=== PATIENT | male | born 1960 | race African-American/Black ===

== ENCOUNTER 2016-08-10 05:39 | Day surgery (SDC) | payer MEDICAID, OTHER ==
[2016-08-10] VITALS (14 sets, daily range): BP systolic 102–155; BP diastolic 56–90; PULSE 44–58; RESP 13–21; Ht 177.8 cm; Wt 84.0 kg
[~2016-08-10] VITALS: Ht 177.8 cm; Wt 84.0 kg
[2016-08-10] MEDS ORDERED: morphine SULFATE/PF (10 MG/10 ML) INJ ONE (06:46)
[2016-08-10] MEDS ORDERED: SODIUM CL BACTERIOSTATIC 30 ML INJ ONE (06:46)
[2016-08-10] MEDS ORDERED: EPINEPHrine 1 MG/ML 30 ML INJ ONE (06:47)
[2016-08-10] MEDS ORDERED: SUCCINYLCHOLINE CHLORIDE 100 MG/5 ML SYG IV ONE (06:57)
[2016-08-10] MEDS ORDERED: ONDANSETRON 4 MG INJ ONE (06:58)
[2016-08-10] MEDS ORDERED: FENTAnyl 50 MCG/ML VIAL ONE (06:58)
[2016-08-10] MEDS ORDERED: ROCURONIUM 50 MG INJ ONE (06:58)
[2016-08-10] MEDS ORDERED: PROPOFOL 20 ML ONE (06:58)
[2016-08-10] MEDS ORDERED: CEFAZOLIN 1 GM INJ ONE (06:58)
--- NOTE | 2016-08-10 07:03 | PREOPHP ---
DATE OF ADMISSION: 08/10/2016 HISTORY OF PRESENT ILLNESS: This 55-year-old patient is going to be admitted for diagnostic arthros copy; partial medial and partial lateral meniscectomy, possible repair; application of Gibbs dressin g of right knee. This patient has been experiencing right knee pain for quite a while. Conservativ e treatment resulted in limited benefit to the patient, and the patient has requested surgical inter vention. PAST MEDICAL HISTORY: Unremarkable. SOCIAL HISTORY: Nonsmoker, nondrinker. FAMILY HISTORY: Positive for diabetes, Alzheimer's. SURGICAL HISTORY: Breast biopsy. HISTORY OF DRUG ALLERGIES: NONE. MEDICATIONS: 1. Sulindac. 2. Folic acid. 3. ____ surgery has been [place] 5/325 postop and Bactrim DS for 5 days. PHYSICAL EXAMINATION: SKIN: Within normal limits. EARS, NOSE, THROAT: PERRLA. HEAD AND NECK: Normocephalic. Trachea midline. Bilateral symmetrical carotid pulses. No mass, no bruit, no lymphadenopathy. CARDIOVASCULAR: Normal sinus rhythm. S1, S2 normal. No murmur. No JVD. No peripheral edema. LUNGS: Clear. ABDOMEN: Protuberant. No organomegaly. No mass. Bowel sounds present. GENITOURINARY AND RECTAL: Not done, not pertinent to this admission. MUSCULOSKELETAL: Height of 5 feet 10 inches, weighing 194 pounds. Cervical spine range of motion w as about 80%. There is minimal tenderness in trapezius region ____. UPPER EXTREMITIES: Shoulders, elbows, wrist and hands symmetrical and normal including neurovascula r examination. LOWER EXTREMITIES: Symmetrical and normal except for right knee. Range of motion is 0 to 10 degree s of flexion, lack of 10 degrees of extension. There is tenderness over the posterolateral corner o f the knee. There is no instability. There is positive Apley compression test. RADIOLOGIC EVALUATION: MRI of right knee indicates torn lateral meniscus, torn medial meniscus, cho ndromalacia of patella, joint effusion. DIAGNOSES: Right knee torn medial and lateral meniscus, plica band, possible synovitis, ____. Treatment plan, alternatives, risks were discussed. The patient understands possibility of complica tion from surgery such as infection, bleeding, nerve damage, vascular damage, possibility of deep ve nous thrombosis, pulmonary embolism, hypersensitivity from medication, ____ that ideal result may no t be obtained depending on actual finding and known or unknown factor or factors. A formal H and P is supposed to be done by PCP. The patient understands preop, postop protocol ____ repair. The patient will be on crutches, nonwei ghtbearing for 6 weeks. Dictated By: KAYLA CHATTERJEE/RYLIE Conf#: [id number] DID#: [id number]
[2016-08-10] MEDS ORDERED: ZINC50TA31 PO (07:04)
[2016-08-10] MEDS ORDERED: VIT D3 PO (07:04)
[2016-08-10] MEDS ORDERED: AMLO2.5T78 PO (07:04)
[2016-08-10] MEDS ORDERED: ONDANSETRON 4 MG INJ IV PRN (08:00)
[2016-08-10] MEDS ORDERED: FENTAnyl 50 MCG/ML VIAL IV PRN ×2 (08:00)
[2016-08-10] MEDS ORDERED: hydrALAzine 20 MG INJ IV PRN (08:00)
[2016-08-10] MEDS ORDERED: HYDROmorphONE (0.2 MG/ML) 10ML SYG IV PRN ×2 (08:00)
[2016-08-10] MEDS ORDERED: LABETALOL HCL 20MG INJ IV PRN (08:00)
[2016-08-10] MEDS ORDERED: MEPERIDINE 25 MG INJ IV PRN (08:00)
[2016-08-10] MEDS: HYDROmorphONE (0.2 MG/ML) 10ML SYG IV PRN ×2 (09:12→09:20)
[2016-08-10] MEDS ORDERED: HYDROCODONE/APAP (5/325) TAB PO PRN ×2 (09:30)
--- NOTE | 2016-08-10 11:43 | OPR ---
DATE OF OPERATION: 08/10/2016 PREOPERATIVE DIAGNOSES: 1. Torn medial meniscus. 2. Torn lateral meniscus. 3. Chronic synovitis of right knee. POSTOPERATIVE DIAGNOSES: 1. Torn medial meniscus. 2. Torn lateral meniscus. 3. Chronic synovitis of right knee. PROCEDURE: Diagnostic arthroscopy, partial medial meniscectomy, partial lateral meniscectomy, later al meniscal repair, and total synovectomy of right knee. ANESTHESIA: General. BLEEDING: Minimal. COMPLICATIONS: None. OPERATIVE FINDINGS: Chronic synovitis in suprapatellar pouch and medial and lateral compartment wit h combination of flap tear and horizontal cleavage tear medial compartment. There was combination o f vertical tear, flap tear on the posterior one-third and the middle third of the lateral meniscus t here was also peripheral tear. OPERATIVE PROCEDURE: The patient was transferred to the operating room and placed on the buckle wire inserter t able in supine position. General anesthesia was induced. A gram of Ancef was given IV. Right knee was shaved, prepped and draped in the routine fashion. Landmarks were marked through 2 anterior po rtals, to suprapatellar tendon, 1 medial, 1 lateral. Operative arthroscopy was commenced. There wa s a lot of synovial fluid that was extracted and was washed out. Examination of suprapatellar pouch indicated chronic synovitis. There was absence of plica, absence of loose body in medial and later al gutter. Patella was engaging at 40 degrees in trochlear groove, showing grade III chondromalacia , especially centrally and to some extent laterally. Trochlear groove indicated also grade II to II I chondromalacia. Going to the lateral compartment, there was grade III chondromalacia on the artic ulating section which was with the posterior one-third of the meniscus with combination of flap tear and central vertical tear of the medial meniscus. Therefore, partial medial meniscectomy to stable margins was done. There was chronic synovitis in the entire anterior of the medial compartment goi ng to mid femur. Total synovectomy with Arthrocare Bovie with coagulation was performed. ACL was i ntact, showed some vascularity. Going to the lateral compartment, there was grade III to grade IV c hondromalacia and the posterior third and middle third was pretty unstable to the point that I could pull them all the way to the center of the articular surface and actually I put suction on. I coul d bring the entire posterior one-third to attach through the anterior one-third. Complex tear was p resent of the meniscus including the periphery. Therefore, partial lateral meniscectomy to stable m argins was done and since there was synovitis also present, synovectomy was performed with coagulati on. We used 2 FasT-Fix, one to go to posteromedial corner of the popliteus hiatus to stabilize the posterior one-third. FasT-Fix stable fixation obtained and the other FasT-Fix was used to go anteri or to popliteus hiatus to stabilize that section. Stable fixation was obtained. We created bleedin g on the periphery to stimulate the healing. Total synovectomy of the suprapatellar pouch, medial a nd lateral gutter was also performed with coagulation. All debris was removed. Portal was closed w ith Mastisol and Steri-Strips. Ten milligram of Duramorph mixed with 10 mL of injectable saline was injected into the knee. Sterile Gibbs dressing was applied. Procedure was terminated. General an esthesia was stopped. Patient was taken to recovery room in good and stable condition. Dictated By: KAYLA CHATTERJEE/RYLIE Conf#: [id number] DID#: [id number]
== END 2016-08-10 12:20 | disposition home or self-care (01) ==
LOC: SDS 05:39
PROVIDERS: ATTEND Internal Medicine Endocrinology, Diabetes & Metabolism
DX: M23.203 Derangement of unspecified medial meniscus due to old tear or injury, right knee (principal); M65.861 Other synovitis and tenosynovitis, right lower leg; I10 Essential (primary) hypertension
CPT/HCPCS: 29880; 97162; C1713; J0171; J0690; J1170; J2274; J2405; J3010; J7999; Z7512; Z7610

== ENCOUNTER 2016-10-06 09:35 | Day surgery (SDC) | payer OTHER ==
[~2016-10-06] VITALS: Ht 177.8 cm; Wt 85.6 kg
[~2016-10-06 09:35] MED LIST: AMLO2.5T78 PO; VIT D3 PO; ZINC50TA31 PO
[2016-10-06 10:26] VITALS: Ht 177.8 cm; Wt 85.6 kg
[2016-10-06] MEDS ORDERED: IBUP800T25 PO (10:37)
[2016-10-06] MEDS ORDERED: CYCL-319 PO (10:37)
[2016-10-06] MEDS ORDERED: SULI150T39 PO (10:37)
[2016-10-06 10:48] VITALS: BP 130/85; PULSE 64; RESP 18
[2016-10-06 12:00] VITALS: BP 138/79; PULSE 64; RESP 24
[2016-10-06] MEDS ORDERED: MIDAZOLAM 1 MG/ML 2 ML INJ ONE ×2 (13:13)
[2016-10-06] MEDS ORDERED: FENTAnyl 50 MCG/ML VIAL ONE (13:14)
--- NOTE | 2016-10-06 13:56 | GILP ---
DATE OF PROCEDURE: 10/06/2016 PROCEDURE PERFORMED: Colonoscopy. INDICATION: A 55-year-old male undergoing this procedure for a screening colonoscopy. The risks of the procedure, related and unrelated complications, sedative risk, alternatives discussed. Informed consent was obtained. DESCRIPTION OF PROCEDURE: The patient was brought to the GI lab, sedated with Versed 4 mg and fentanyl 100 mg. After optimal sedation, scope was passed with much ease into the rectum and advanced to the sigmoid, descending, transverse colon all the way into the cecum. Appendiceal orifice identified. IC valve identified. The clarity and cleanliness were good. While coming out, mucosa thoroughly inspected. . No internal hemorrhoid identified. Scope was straightened out. External hemorrhoids seen. IMPRESSION: 1. Normal findings all the way into cecum. 2. External hemorrhoid. 3. Clarity and cleanliness were good. PLAN: Stay on high-fiber diet. Next colonoscope after 10 years. Dictated By: Damian Nolasco MD /[email or web address] /Document#: [id number] ; DR ANI MOSQUERA
== END 2016-10-06 13:56 | disposition home or self-care (01) ==
LOC: GIL 09:35
PROVIDERS: ATTEND Internal Medicine Gastroenterology
DX: Z12.11 Encounter for screening for malignant neoplasm of colon (principal); K64.4 Residual hemorrhoidal skin tags
CPT/HCPCS: 45378; J2250; J3010; Z7610